=== PATIENT | male | born 1990 | race American Indian/Alaskan Native ===

== ENCOUNTER 2021-05-20 19:35 | Emergency (ER) | payer SELFPAY ==
[2021-05-20] MEDS ORDERED: KETOROLAC 60 MG/2 ML INJ IM ONE (20:00)
[2021-05-20] MEDS ORDERED: LIDOCAINE VISCOUS 2% 15 ML ORAL LIQD PO ONE (20:00)
[2021-05-20] MEDS ORDERED: dexAMETHasone 20 MG/5 ML VIAL IM ONE (20:00)
[2021-05-20] MEDS ORDERED: ACETAMINOPHEN 500 MG TAB PO ONE (20:00)
[2021-05-20] MEDS ORDERED: AMOXICILLIN/K CLAV 875/125MG TAB PO ONE (20:01)
--- NOTE | 2021-05-20 21:40 | Emergency Department Report ---
ED General Adult HPI - General Chief complaint: Sore Throat Stated complaint: SORE THROAT Source: patient Mode of arrival: Ambulatory Limitations: No Limitations - History of Present Illness Initial comments: Patient is a 31-year-old -[place] male with a history of HIV and asthma who presents to the ED with a complaint of acute onset persistent severe sore throat with dysphagia for the last 4 days. Patient states that he has not been able to swallow anything in the last 12 hours because of worsening pain. Patient states that no one else at home has had similar symptoms. Patient denies fever, chills, nausea and vomiting, chest pain, shortness of breath, cough, dizziness, syncope, abdominal pain, diarrhea, nasal and sinus congestion, change in vision report.. MD Complaint: Sore throat; dysphagia -: Sudden, days(s) (4) Location: mouth Radiation: non-radiation Severity scale (0 -10): 9 Quality: aching, sharp Consistency: constant Improves with: none Worsens with: none Associated Symptoms: denies: confusion, chest pain, cough, diaphoresis, fever/chills, headaches, loss of appetite, malaise, nausea/vomiting, rash, seizure, shortness of breath, syncope, weakness, other Treatments Prior to Arrival: none - Related Data Previous Rx's Medication Instructions Recorded Last Taken Type Amoxicillin/Potassium Clav 1 each PO Q12H #20 tablet 05/20/21 Unknown Rx [Augmentin 875-125 Tablet] Ibuprofen [Motrin] 800 mg PO Q8HR PRN #30 tablet 05/20/21 Unknown Rx Lidocaine Viscous 2% 10 ml PO Q6H PRN #120 ml 05/20/21 Unknown Rx predniSONE [Deltasone] 40 mg PO QDAY #12 tab 05/20/21 Unknown Rx Allergies Allergy/AdvReac Type Severity Reaction Status Date / Time No Known Allergies Allergy Verified 05/20/21 19:51 ED Review of Systems ROS: Stated complaint: SORE THROAT Other details as noted in HPI Constitutional: denies: chills, fever Eyes: denies: eye pain, eye discharge, vision change ENT: throat pain, other (dysphagia). denies: ear pain, dental pain, hearing loss Respiratory: denies: cough, shortness of breath, SOB with exertion, wheezing Cardiovascular: denies: chest pain, palpitations Endocrine: no symptoms reported Gastrointestinal: denies: abdominal pain, nausea, vomiting, diarrhea Genitourinary: denies: urgency, dysuria Musculoskeletal: denies: back pain, joint swelling, arthralgia Skin: denies: rash, lesions Neurological: denies: headache, weakness, paresthesias Psychiatric: denies: anxiety, depression Hematological/Lymphatic: denies: easy bleeding, easy bruising ED Past Medical Hx - Past Medical History Hx Asthma: Yes Hx HIV: Yes - Surgical History Past Surgical History?: Yes Additional Surgical History: NASAL SURGERY - Medications Home Medications: Home Medications Medication Instructions Recorded Confirmed Last Taken Type Amoxicillin/Potassium Clav 1 each PO Q12H #20 tablet 05/20/21 Unknown Rx [Augmentin 875-125 Tablet] Ibuprofen [Motrin] 800 mg PO Q8HR PRN #30 tablet 05/20/21 Unknown Rx Lidocaine Viscous 2% 10 ml PO Q6H PRN #120 ml 05/20/21 Unknown Rx predniSONE [Deltasone] 40 mg PO QDAY #12 tab 05/20/21 Unknown Rx ED Physical Exam - General Limitations: No Limitations General appearance: alert, in no apparent distress - Head Head exam: Present: atraumatic, normocephalic, normal inspection - Eye Eye exam: Present: normal appearance, PERRL, EOMI Pupils: Present: normal accommodation - ENT ENT exam: Present: mucous membranes moist, TM's normal bilaterally, normal external ear exam, other (Erythematous oropharynx and tonsils with thick yellowish-white exudate; uvula is midline, no sign of peritonsillar abscess) - Neck Neck exam: Present: normal inspection, full ROM, lymphadenopathy (Severe bilateral cervical lymphadenopathy) - Respiratory Respiratory exam: Present: normal lung sounds bilaterally. Absent: respiratory distress, wheezes, rales, rhonchi, chest wall tenderness, accessory muscle use, decreased breath sounds, prolonged expiratory - Cardiovascular Cardiovascular Exam: Present: normal rhythm, tachycardia, normal heart sounds. Absent: systolic murmur, diastolic murmur, rubs, gallop - GI/Abdominal GI/Abdominal exam: Present: soft, normal bowel sounds. Absent: tenderness, guarding, rebound, hyperactive bowel sounds, hypoactive bowel sounds, organom egaly, mass - Extremities Exam Extremities exam: Present: normal inspection, full ROM, normal capillary refill - Back Exam Back exam: Present: normal inspection, full ROM. Absent: tenderness, CVA tenderness (R), CVA tenderness (L), muscle spasm, paraspinal tenderness - Neurological Exam Neurological exam: Present: alert, oriented X3, CN II-XII intact, normal gait, reflexes normal - Psychiatric Psychiatric exam: Present: normal affect, normal mood - Skin Skin exam: Present: warm, dry, intact, normal color. Absent: rash ED Course Vital Signs 05/20/21 05/20/21 19:37 22:09 Temperature 98.6 F 98.5 F Pulse Rate 104 H 95 H Respiratory 18 16 Rate Blood Pressure 114/66 117/79 [Right] O2 Sat by Pulse 99 98 Oximetry ED Medical Decision Making - Medical Decision Making This is a 31-year-old -[place] male with a history of HIV and asthma who presents to the ED with a complaint of acute onset persistent severe sore throat with dysphagia for the last 4 days. Patient states that he has not been able to swallow anything in the last 12 hours because of worsening pain. P atient states that no one else at home has had similar symptoms. In the ED, patient is alert and oriented x3 and is not in any distress. Patient is however tachycardic but afebrile in triage. Patient the history and physical exam findings, the patient was treated in the ED empirically for suspected streptococcal or bacterial tonsillitis and pharyngitis. On reevaluation, patient felt better, pain is well controlled medications and tachycardia resolved. Patient was discharged home on pain medications and antibiotics and advised to follow-up with his primary care physician in 7 to 10 days for reevaluation or return to the ED immediately if symptoms get worse. - Differential Diagnosis Strep pharyngitis; strep tonsillitis; viral pharyngitis; mononucleosis Critical care attestation.: If time is entered above; I have spent that time in minutes in the direct care of this critically ill patient, excluding procedure time. ED Disposition Clinical Impression: Acute bacterial tonsillitis, Acute bacterial pharyngitis Disposition: HOME / SELF CARE / HOMELESS Is pt being admited?: No Does the pt Need Aspirin: No Condition: Stable Instructions: Antibiotic Medicine, Adult, [id number], Tonsillitis, [id number], Pharyngitis, [id number] Additional Instructions: Your symptoms are likely due to streptococcal pharyngitis or streptococcal to nsillitis. Therefore take medications with food, drink plenty of fluids and follow-up with your primary care physician in 7 to 10 days for reevaluation. Return to the ED immediately if symptoms get worse Prescriptions: Amoxicillin/Potassium Clav [Augmentin 875-125 Tablet] 1 each PO Q12H #20 tablet predniSONE [Deltasone] 40 mg PO QDAY #12 tab Lidocaine Viscous 2% 10 ml PO Q6H PRN #120 ml PRN Reason: Sore Throat Ibuprofen [Motrin] 800 mg PO Q8HR PRN #30 tablet PRN Reason: Pain , Severe (7-10) Referrals: [facility] [Provider Group] - 7-10 days Forms: Work/School Release Form(ED) Time of Disposition: 22:48 Print Language: SALVADOREAN
[2021-05-20 22:10] VITALS: BP 117/79
--- NOTE | 2021-05-20 22:15 | XRay Report ---
XR chest routine 2V INDICATION / CLINICAL INFORMATION: Fever, sore throat, cough. COMPARISON: None available. FINDINGS: SUPPORT DEVICES: None. HEART /PULMONARY VASCULATURE: No significant abnormality. LUNGS / PLEURA: No significant pulmonary or pleural abnormality. No pneumothorax. ADDITIONAL FINDINGS: No significant additional findings. IMPRESSION: 1. No acute findings. Signer Name: Marcus Phipps MD Signed: 05/20/2021 10:11 PM Workstation Name: [id number]
== END 2021-05-21 01:16 | disposition home or self-care (01) ==
LOC: ED 19:35
DX: J03.80 Acute tonsillitis due to other specified organisms (principal); J45.909 Unspecified asthma, uncomplicated; B96.89 Other specified bacterial agents as the cause of diseases classified elsewhere
CPT/HCPCS: 71046; 96372; 99283; J1100; J1885